=== PATIENT | female | born 1965 | race Hispanic/Latino ===

== ENCOUNTER 2020-01-22 22:06 | Emergency (ER) | payer BC, OTHER, SELFPAY ==
--- OUTSIDE RECORDS SUMMARY | 2020-01-22 22:08 | XMS REPORT ---
:1965 Author Organization eClinicalWorks Care Team Providers Name Role Phone Bharath Olguin Provider Role Unavailable Allergies No Known Allergies Problems Problem Type Condition Code Onset Dates Condition Statu s Problem Panic disorder [episodic paroxysmal F41.0 Active anxiety] Problem Familial hypercholesteremia E78.01 Active Problem Generalized anxiety disorder F41.1 Active Problem Benign essential hypertension I10 Active Problem Depression with anxiety F41.8 Acti ve Problem Elevated LFTs R79.89 Active Problem Mixed hyperlipidemia E78.2 Active Medications No Known Medications Results No Known Results Summary Purpose eClinicalWorks Submission
--- OUTSIDE RECORDS SUMMARY | 2020-01-22 22:08 | XMS REPORT ---
:1965 Author Organization eClinicalWorks Care Team Providers Name Role Phone Sharif Bharath Provider Role Unavailable Allergies No Known Allergies Problems Problem Type Condition Code Onset Dates Condition Statu s Assessment Benign essential hypertension I10 Active Problem Panic disorder [episodic paroxysmal F41.0 Active anxiety] Problem Familial hypercholesteremia E78.01 Active Problem Generalized anxiety disorder F41.1 Active Problem Benign essential hypertension I10 Active Problem Depression with anxiety F41.8 Acti ve Problem Elevated LFTs R79.89 Active Problem Mixed hyperlipidemia E78.2 Active Medications Medication Code Code Instructions Start End Status Dosage System Date Date Hydrochlorothiazide [facility] 23875727258 12.5 MG Orally Jan 05, A ctive 1 tablet Once a day 2019 in the morning Zestoretic [facility] 10372599724 10-12.5 MG Inactive 1 tab let Orally Once a day Lisinopril [facility] 54941374906 10 MG Orally Jan 05, Active 1 ta blet Once a day 2019 Results No Known Results Summary Purpose eClinicalWorks Submission
--- OUTSIDE RECORDS SUMMARY | 2020-01-22 22:08 | XMS REPORT ---
:1965 Author Organization eClinicalWorks Care Team Providers Name Role Phone Sharif Bharath Provider Role Unavailable Allergies, Adverse Reactions, Alerts Substance Reaction Event Type N.K.D.A. Info Not Available Non Drug Allergy Problems Problem Type Condition Code Onset Dates Condition Statu s Assessment Generalized anxiety disorder F41.1 Active Assessment Panic disorder [episodic paroxysmal F41.0 Active anxiety] Problem Panic disorder [episodic paroxysmal F41.0 Active anxiety] Problem Familial hypercholesteremia E78.01 Active Problem Generalized anxiety disorder F41.1 Active Problem Benign essential hypertension I10 Active Problem Depression with anxiety F41.8 Acti ve Problem Elevated LFTs R79.89 Active Problem Mixed hyperlipidemia E78.2 Active Assessment Elevated uric acid in blood E79.0 Active Assessment Renal insufficiency N28.9 Active Assessment Prediabetes R73.03 Active Assessment Statin intolerance Z78.9 Active Assessment Mixed hyperlipidemia E78.2 Active Assessment Adult BMI 27.0-27.9 kg/sq m Z68.27 Active Assessment Elevated LFTs R79.89 Active Assessment Benign essential hypertension I10 Active Assessment Familial hypercholesteremia E78.01 Active Assessment Depression with anxiety F41.8 Acti ve Medications Medication Code System Code Instructions Start End Date Status Dos age Date Lexapro ND 05313986806 20 MG Orally Once Active Ta ke 1 a day tablet Zestoretic [facility] 98689861101 10-12.5 MG Orally Active 1 tablet Once a day Alprazolam ND 24794588892 0.5 MG Orally Dec 30, Active 1 t ablet ONCE A DAY PRN 2019 SEVERE PANIC ATTACK Lexapro ND 33287812422 20 MG Active TAKE ONE (1) TABLET(S) BY MOUTH ONCE A DAY. Crestor ND 00922580898 10 MG Orally Once Active 1 tablet a day Results No Known Results Summary Purpose eClinicalWorks Submission
--- OUTSIDE RECORDS SUMMARY | 2020-01-22 22:08 | XMS REPORT ---
:1965 Author Organization eClinicalWorks Care Team Providers Name Role Phone Bharath Olguin Provider Role Unavailable Allergies No Known Allergies Problems Problem Type Condition Code Onset Dates Condition Statu s Problem Elevated LFTs R79.89 Active Problem Mixed hyperlipidemia E78.2 Active Problem Familial hypercholesteremia E78.01 Active Problem Benign essential hypertension I10 Active Problem Depression with anxiety F41.8 Acti ve Medications No Known Medications Results No Known Results Summary Purpose eClinicalWorks Submission
--- OUTSIDE RECORDS SUMMARY | 2020-01-22 22:08 | XMS REPORT ---
[...] Mixed hyperlipidemia E78.2 Active Medications Medication Code System Code Instructions Start Date End Date Status Dosage Zestoretic [facility] 22531354113 10-12.5 MG Orally Active 1 tablet Once a day Results No Known Results Summary Purpose eClinicalWorks Submission
--- OUTSIDE RECORDS SUMMARY | 2020-01-22 22:08 | XMS REPORT ---
:1965 Author Organization eClinicalWorks Care Team Providers Name Role Phone OlguinBharath Provider Role Unavailable Allergies No Known Allergies Problems Problem Type Condition Code Onset Dates Condition Statu s Assessment Panic disorder [episodic paroxysmal F41.0 Active anxiety] Problem Panic disorder [episodic paroxysmal F41.0 Active anxiety] Problem Familial hypercholesteremia E78.01 Active Problem Generalized anxiety disorder F41.1 Active Problem Benign essential hypertension I10 Active Problem Depression with anxiety F41.8 Acti ve Problem Elevated LFTs R79.89 Active Problem Mixed hyperlipidemia E78.2 Active Medications Medication Code System Code Instructions Start Date End Date Status Dosage Alprazolam [facility] 22842264495 1 MG Orally ONCE Active 1 tablet A DAY PRN SEVERE PANIC ATTACK Results No Known Results Summary Purpose eClinicalWorks Submission
--- OUTSIDE RECORDS SUMMARY | 2020-01-22 22:08 | XMS REPORT | Continuity of Care Document ---
:1965 Author Organization [facility] t Address [address] [place] [address] Care Team Providers Name Role Phone Unavailable Unavailable Unavailable Problems Condition Condition Condition Status Onset Resolution Last Treating Co mments Source Name Details Category Date Date Treatment Clinician Date Elevated Elevated Problem [facility] Mixed Mixed Problem Active [facility] hyperlipid hyperlipid Sheryl kes - emia emia [facility] Benign Benign Problem Active [facility] essential essential [facility] - hypertensi hypertensi Me moria on on l [facility] Depression Depression Problem Active [facility] with with [facility] anxiety [facility] Familial Familial Problem Active [facility] hyperchole hyperchole Sheryl kes - steremia steremia Mem[facility] Generalize Generalize Problem Active [facility] d anxiety d anxiety [facility] - disorder disorder [facility] Panic Panic Problem Active [facility] disorder disorder [facility] [episodic [episodic Bill bailee paroxysmal paroxysmal l anxiety] anxiety] Outpat i ent Clinics Allergies, Adverse Reactions, Alerts This patient has no known allergies or adverse reactions. Medications Ordered Filled Start Stop Current Ordering Indication Dosage Frequency Signature Comments Components Source Medication Medication Date Date Medication? Clinician (SIG) Name Name Alprazolam Alprazolam Yes Bharath [address] [facility]guin [facility] Procedures This patient has no known procedures. Encounters Start End Encounter Admission Attending Care Care Encounter Source Date/Time Date/Time Type Type Clinicians Facility Department ID 2020-01-11 2020-01-11 [facility] [id number] [facility] 13:12[facility] 13:12:00 [place] [facility] Family [facility] Family Medicine Medicine Outpati ent Clinics 2020-01-06 2020-01-06 [facility] [id number] [facility] 08:00:00 08:00:00 [place] [facility] Medicine Medicine Outpati ent Clinics 2020-01-05 2020-01-05 [facility] [id number] 10:40:00 10:40:00 t [facility] l Medicine Outpati ent Clinics 2019-12-31 2019-12-31 [facility] [id number] [facility] 16:30:00 16:30:00 [place] [employer] [facility] l Medicine Outpati ent Clinics 2019-12-31 2019-12-31 [facility] [id number] 15:52:00 15:52:00 t [place] [facility] l Medicine Outpati ent Clinics 2019-11-02 2019-11-02 [facility] [id number] 09:11:00 09:11:00 [place] [employer] [facility] Medicine Outpati ent Clinics 2019-10-30 2019-10-30 [facility] [id number] [facility] 13:30:00 13:30:00 t [facility] Medicine Outpati ent Clinics 2019-10-07 2019-10-07 [facility] [id number] [facility] 16:30:00 16:30:00 [place] [employer] [facility] Medicine Outpati ent Clinics 2019-07-29 2019-07-29 [facility] [id number] 11[facility]15:00 11:15:00 [place] [employer] [facility] Medicine Medicine Outpati ent Clinics 2019-06-30 2019-06-30 [facility] [id number] [facility] 13:15:00 13:15:00 [place] [employer] [facility] l Medicine Outpati ent Clinics 2019-06-16 2019-06-16 [facility] [id number] [facility] 14:52:00 14:52:00 t [place] [facility] Medicine Outpati ent Clinics 2019-06-03 2019-06-03 [facility] [id number] 10:53:00 10:53:[place] [address] [address] [place] [facility] l Medicine Outpati ent Clinics 2019-04-22 2019-04-22 [facility] [id number] 14:09:00 14:09:[address] [place] [address] [address] [place] - Drive [facility] Medicine Outpati ent Clinics 2019-04-02 2019-04-02 [facility] [id number] 11:07:00 11:07:[facility] [place] [address] [place] - Drive [facility] Medicine Outpati ent Clinics 2019-03-30 2019-03-30 [facility] [id number] 11:54:00 11:54:00 [place] - Drive [facility] Medicine Outpati ent Clinics 2019-02-10 2019-02-10 [facility] [id number] 13:45:00 13:45:00 [place] - [facility] Medicine Outpati ent Clinics 2018-10-31 2018-10-31 [facility] [id number] [facility] 09:15:00 09:15:00 [place] - Drive [facility] Medicine Outpati ent Clinics 2018-08-25 2018-08-25 [facility] [id number] 15:25:00 15:25:00 [place] - [facility] Medicine Outpati ent Clinics 2018-07-04 2018-07-04 [facility] [id number] [facility] 09:45:00 09:45:00 [place] - [facility] Medicine Outpati ent Clinics 2018-06-11 2018-06-11 [facility] [id number] 11:13:00 11:13:00 [place] - [facility] Medicine Outpati ent Clinics 2018-02-13 2018-02-13 [facility] [id number] [facility] 15:48:00 15:48:00 t [place] [facility] 2017-10-29 2017-10-29 Outpatient Tj [facility] [id number] [facility] 09:30:00 09:30:00 t [place] [facility] 2017-07-29 2017-07-29 Outpatient Tj Spenc[facility] [id number] [facility] 09:30:00 09:30:00 [place] [facility] ent Clinics Results This patient has no known results.
[2020-01-22 22:31] LABS: Absolute Lymphocytes (CBC) 2.1 K/uL (0.7-4.9); Basophils % 0.9 % (0-1.3); Hematocrit 30.7 % (36.0-45.0); Lymphocytes % 26.8 % (15.3-44.8); MPV 8.1 fL (7.6-11.3)
[2020-01-22] MEDS ORDERED: ONDANSETRON 4 MG/2 ML VIAL ONE (22:41)
[2020-01-22] MEDS ORDERED: NA CHLORIDE 0.9% 1,000 ML ONE (22:41)
[2020-01-22 22:42] LABS: Protime INR 1.08
[2020-01-22] MEDS ORDERED: ACT CHARCOAL/SORB 50 GM/240ML ONE (22:54)
[2020-01-22 23:06] LABS: ALT/SGPT 28 U/L (12-78); AST/SGOT 27 U/L (15-37); Alkaline Phosphatase 72 U/L (45-117); BUN Blood Urea Nitrogen 31 mg/dL (7-18); Bicarbonate 23 mmol/L (21-32); Bilirubin Direct < 0.1 mg/dL (0-0.2); Bilirubin Total 0.2 mg/dL (0.2-1.0); Glucose Level 103 mg/dL (74-106); Potassium 3.5 mmol/L (3.5-5.1); Protein, Total 7.9 g/dL (6.4-8.2); Sodium Level 138 mmol/L (136-145)
[2020-01-22 23:17] LABS: Urine Blood NEGATIVE (NEG); Urine Glucose NEGATIVE (NEG); Urine Protein NEGATIVE (NEG); Urine pH 5.5 (5.0-7.0)
[2020-01-22 23:31] LABS: Barbiturates NEGATIVE (NEGATIVE); Benzodiazepines NEGATIVE (NEGATIVE); Cocaine NEGATIVE (NEGATIVE); METHAMPHETAM POSITIVE (NEGATIVE); Methadone NEGATIVE (NEGATIVE); Opiates NEGATIVE (NEGATIVE); Phencyclidine NEGATIVE (NEGATIVE); THC Cannibis NEGATIVE (NEGATIVE)
[2020-01-23] MEDS ORDERED: MAGNESIUM SULFATE 1 gm IVPB 1 GM/100 ML BAG IV ONE ×2 (05:05→06:36)
[2020-01-23] MEDS ORDERED: POTASSIUM 25 MEQ EFFERV TAB ONE (06:36)
[2020-01-23] MEDS ORDERED: ACETAMINOPHEN 325 MG TABLET ONE (07:42)
--- NOTE | 2020-01-23 08:24 | ER ---
Nurse's Notes [facility] Name: Cristy Diaz Age: 54 yrs Sex: Female : 1965 Arrival Date: 01/22/2020 Time: 22:07 Bed 5 Private MD: Diagnosis: Suicidal ideations-resolved;Suicide attempt;Adjustment disorder with depressed mood Presentation: 01/21 22:09 Chief complaint: EMS states: Daughter called EMS, reports mother took an unknown amount ea of pills. Daughter handed EMS Hydrochlorothiazide 12.5 mg , escitalopram 20 mg and rosuvastatin 10 mg bottles. Pt reports she took meds about thirty minutes ago. Coronavirus screen: At this time, the client does not indicate any symptoms associated with coronavirus-19. Ebola Screen: No symptoms or risks identified at this time. Initial Sepsis Screen: Does the patient meet any 2 criteria? No. Patient's initial sepsis screen is negative. Does the patient have a suspected source of infection? No. Patient's initial sepsis screen is negative. Risk Assessment: Do you want to hurt yourself or someone else? Patient reports desire/thoughts of hurting themselves or someone else. Provider notified. Other: pt verbalized she took pills because she wanted to commit suicide. Onset of symptoms was January 22, 2020. 22:09 Method Of Arrival: EMS: [facility] ea 22:09 Acuity: NOELLE 2 ea Triage Assessment: 22:19 General: Appears uncomfortable, Behavior is crying. Pain: Denies pain. Neuro: Level of ea Consciousness is awake, alert, obeys commands, Oriented to person, place, time, situation. Respiratory: Airway is patent Respiratory effort is even, unlabored, Respiratory pattern is regular, symmetrical. Historical: - Allergies: 22:18 No Known Allergies; ea - PSHx: 22:18 None; ea - Immunization history:: Adult Immunizations up to date. - Social history:: Smoking status: Patient denies any tobacco usage or history of. Screenin:14 Abuse screen: Denies threats or abuse. Nutritional screening: No deficits noted. ea Tuberculosis screening: No symptoms or risk factors identified. Fall Risk None identified. Assessment: 22:19 Reassessment: see triage assessment. ea 22:30 Reassessment: POISON CONTROL RECOMMENDATION: HCTZ AND ROSUVASTATIN HAVE MINOR EFFECTS, rv WATCH OUT FOR GI SYMPTOMS LIKE DIARRHEA, TREATMENT FOR ELECTROLYTE IMBALANCE. 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 CHANGES IN THE EKG, QRS WIDENING- GIVE SODIUM BICARBONATE, MAINTAIN POTASSIUM LEVEL OF 4.0-4.2, QT PROLONGATION- GIVE MAGNESIUM 1-2 GRAMS IV FOR 15 MINUTES. IF INGESTION HAPPENED LESS THAN AN HOUR, WE CAN DO CHARCOAL TREATMENT. AFTER SIX HOUR DEYA AFTER INGESTION OF SUBSTANCE, IF LAB WORKS ARE ALL NEGATIVE, PATIENT CAN BE MEDICALLY CLEARED FOR DISCHARGED. Reassessment: . 23:35 Reassessment: Patient and/or family updated on plan of care and expected duration. Pain ea level reassessed. Patient is alert, oriented x 3, equal unlabored respirations, skin warm/dry/pink. 23:49 Neuro: Level of Consciousness is alert, obeys commands, Oriented to person, place, rv time, situation. Cardiovascular: Rhythm is sinus tachycardia. Respiratory: Airway is patent Respiratory effort is even, unlabored. 01/22 01:01 General: Behavior is cooperative. Pain: Denies pain. Neuro: Oriented to person, place, rv time, situation. Cardiovascular: Rhythm is sinus tachycardia. Respiratory: Airway is patent Respiratory effort is even, unlabored, Breath sounds are clear bilaterally. 02:24 Reassessment: Pt resting with eyes closed, respirations even and unlabored, chest ea expansions even and symmetrical. 03:30 Reassessment: Patient and/or family updated on plan of care and expected duration. Pain ea level reassessed. Patient is alert, oriented x 3, equal unlabored respirations, skin warm/dry/pink. 04:58 Reassessment: Patient and/or family updated on plan of care and expected duration. Pain ea level reassessed. Patient is alert, oriented x 3, equal unlabored respirations, skin warm/dry/pink. 05:30 Reassessment: Pt resting with eyes closed, respirations even and unlabored chest ea expansions even and symmetrical. 06:15 Reassessment: Patient and/or family updated on plan of care and expected duration. Pain ea level reassessed. Patient is alert, oriented x 3, equal unlabored respirations, skin warm/dry/pink. 07:34 Reassessment: pt c/o headache at this time, medicated as ordered. tw2 08:15 Reassessment: Patient appears in no apparent distress at this time. Patient and/or tw2 family updated on plan of care and expected duration. Pain level reassessed. Patient is alert, oriented x 3, equal unlabored respirations, skin warm/dry/pink. 08:38 Reassessment: Patient appears in no apparent distress at this time. Patient and/or tw2 family updated on plan of care and expected duration. Pain level reassessed. Patient is alert, oriented x 3, equal unlabored respirations, skin warm/dry/pink. 08:45 Reassessment: Patient appears in no apparent distress at this time. Patient and/or tw2 family updated on plan of care and expected duration. Pain level reassessed. Patient is alert, oriented x 3, equal unlabored respirations, skin warm/dry/pink. Psych: 01/21 22:15 Subjective: Patient's mood is sad, Delusions are denied, Having thoughts of suicide. ea Plan for suicide is Pt states "I took them because I wanted to ". Objective: Patient is cooperative, Speech is normal, Affect is appropriate. Interventions: Removed personal items and placed in bag. Patient placed in hospital gown. Searched person for dangerous items. Suicide Risk Assessment: Sad Person Scale: Sex of patient: Female: Score 0 points. Age of patient: Score 0 point if patient falls outside of specified age parameters. Depression: Score 1 point if signs of depression are present. Previous Attempt: Score 0 point if patient has not previously attempted suicide. Substance Abuse: Score 1 point if patient abuses alcohol or drugs. Rational Thinking: Score 0 point if patient has rational thinking. Social Support: Score 0 if social support is present/available. Organized Plan: Score 1 point if patient had a plan in place. Relationship: Score 1 point if patient is , , , or for a single male. Safety Checks: Personal items have been removed. Door is open. No visitors are present at this time. Patient uses pt reports she drank three boxes of wine today. 22:15 Commitment: Patient will be a voluntary commitment. ea Vital Signs: 22:09 BP 164 / 101; Pulse 105; Resp 20; Temp 97.4; Pulse Ox 99% on R/A; Weight 70.31 kg; ea Height 5 ft. 11 in. (180.34 cm); 23:18 BP 157 / 102; Pulse 102; Resp 18; Pulse Ox 98% ; ea 01/22 00:58 BP 112 / 52; Pulse 106; Resp 17; Pulse Ox 91% on R/A; rv 01:01 Pulse Ox 98% on 2 lpm NC; rv 02:25 BP 104 / 56; Pulse 99; Resp 18; Pulse Ox 98% on R/A; ea 03:52 BP 94 / 57; Pulse 96; Resp 18; Pulse Ox 98% on R/A; ea 04:00 BP 106 / 64; Pulse 88; Resp 18; Pulse Ox 98% ; ea 05:11 BP 127 / 70; Pulse 90; Resp 17; Pulse Ox 99% on 2 lpm NC; rv 06:16 BP 122 / 78; Pulse 95; Resp 18; Pulse Ox 99% on R/A; ea 07:43 BP 115 / 72; Pulse 93; Resp 16; Temp 97.8(O); Pulse Ox 100% on R/A; mh5 08:15 BP 131 / 87; Pulse 94; Resp 17; Pulse Ox 99% on R/A; tw2 01/21 22:09 Body Mass Index 21.62 (70.31 kg, 180.34 cm) ED Course: 01/21 22:07 Patient arrived in ED. cf2 22:09 Bridget Deshpande, RN is Primary Nurse. ea 22:13 Triage completed. ea 22:14 Patient has correct armband on for positive identification. Placed in gown. Bed in low ea position. Call light in reach. Side rails up X2. property assessment monitor on. Pulse ox on. NIBP on. 22:15 Vega Cleaning MD is Attending Physician. lp1 22:15 Safety Checks: Personal items have been removed. There are no family/friend visitors at this time Sitter present at this time. 22:19 Arm band placed on right wrist. Patient placed in an exam room, on a stretcher, on pulse oximetry. 22:21 EKG done, by ED staff. tt3 22:30 Safety Checks: Personal items have been removed. There are no family/friend visitors at this time Sitter present at this time. 22:45 Safety Checks: Personal items have been removed. There are no family/friend visitors at this time Sitter present at this time. 23:00 Safety Checks: Personal items have been removed. There are no family/friend visitors at this time Sitter present at this time. 23:15 Safety Checks: Personal items have been removed. There are no family/friend visitors at this time Sitter present at this time. 23:30 Safety Checks: Personal items have been removed. There are no family/friend visitors at this time Sitter present at this time. 23:49 Appears to be sleeping. rv 23:49 Patient is placed in psych hold. rv 01/22 01:01 Appears to be sleeping. rv 06:23 Attending Physician role handed off by Vega Cleaning MD ma2 06:23 Michael Nelson MD is Attending Physician. ma2 06:24 Attending Physician role handed off by Michael Nelson MD irasema 06:24 Noe Addison MD is Attending Physician. irasema 07:00 Maintain EMS IV. IV discontinued, intact, bleeding controlled, No redness/swelling at tw2 site. Pressure dressing applied. 07:10 Primary Nurse role handed off by Bridget Deshpande RN tw2 07:10 Chantale Goldberg RN is Primary Nurse. tw2 08:22 Denver Valencia MD is Referral Physician. irasema 08:38 No provider procedures requiring assistance completed. tw2 Administered Medications: 01/21 22:20 Drug: NS 0.9% 1000 ml Route: IV; Rate: 1 bolus; Site: right hand; ea 23:32 Follow up: IV Status: Completed infusion; IV Intake: 1000ml rv 22:30 Drug: Zofran (Ondansetron) 4 mg Route: IVP; Site: right hand; ea 23:32 Follow up: Response: No adverse reaction rv 22:55 Drug: Charcoal Suspension 100 grams Route: PO; ea 01/22 01:06 Follow up: Response: No adverse reaction rv 05:00 Drug: Magnesium Sulfate 1 grams Route: IVPB; Infused Over: 1 hrs; Site: right wrist; rv 05:30 Follow up: IV Status: Completed infusion; IV Intake: 100ml rv 06:29 Drug: Potassium Effervescent Tablet 50 mEq Route: PO; rv 06:58 Follow up: Response: No adverse reaction rv 06:29 Drug: Magnesium Sulfate 1 grams Route: IVPB; Infused Over: 1 hrs; Site: right wrist; rv 06:58 Follow up: IV Status: Completed infusion; IV Intake: 100ml rv 07:34 Drug: Tylenol 650 mg Route: PO; tw2 08:15 Follow up: Response: No adverse reaction tw2 Intake: 01/21 23:32 IV: 1000ml; Total: 1000ml. rv 0912 05:30 IV: 100ml; Total: 1100ml. rv 06:58 IV: 100ml; Total: 1200ml. rv Outcome: 08:23 Discharge ordered by . irasema 08:38 Discharged to home ambulatory. 08:38 Condition: stable 08:38 Discharge instructions given to patient, Instructed on discharge instructions, follow up and referral plans. Demonstrated understanding of instructions, follow-up care. 08:45 Patient left the ED. tw2 Signatures: Noe Addison MD MD cha Pena, Laura RN RN lp1 Chantale Goldberg RN RN 2 [place] Pena [facility] Bridget Deshpande RN RN ea Alzahri, Mohammad, MD MD ma2 Stephen Bella RN RN Elzbieta Wyatt 2 Scott Walker 3
--- NOTE | 2020-01-23 08:24 | EDPHYS ---
Physician Documentation [facility] Name: Cristy Diaz Age: 54 yrs Sex: Female : 1965 Arrival Date: 01/22/2020 Time: 22:07 Bed 5 Private MD: ED Physician Noe Addison HPI: 01/22 03:48 This 54 yrs old Female presents to ER via EMS with complaints of Suicidal tw4 Ideation. 03:48 The patient presents to the emergency department with depression, over a relationship, tw4 has had a recent break-up, a history of a suicide gesture, where the patient took pills/medications, suicide ideation, and the patient has a plan, to overdose with medications. The patient presents to the emergency department with a history of a suicide gesture, where the patient took pills/medications, citaprolam. Onset: The symptoms/episode began/occurred just prior to arrival. Associated signs and symptoms: The patient has no apparent associated signs or symptoms. The patient has not experienced similar symptoms in the past. Historical: - Allergies: 01/21 22:18 No Known Allergies; ea - PSHx: 22:18 None; ea - Immunization history:: Adult Immunizations up to date. - Social history:: Smoking status: Patient denies any tobacco usage or history of. ROS: 01/22 03:48 Constitutional: Negative for fever, chills, and weight loss, Eyes: Negative for injury, tw4 pain, redness, and discharge, Cardiovascular: Negative for chest pain, palpitations, and edema, Respiratory: Negative for shortness of breath, cough, wheezing, and pleuritic chest pain, Abdomen/GI: Negative for abdominal pain, nausea, vomiting, diarrhea, and constipation, Back: Negative for injury and pain, MS/Extremity: Negative for injury and deformity, Skin: Negative for injury, rash, and discoloration. Psych: Positive for depression, suicide gesture, suicidal ideation, Negative for drug dependence, alcohol dependence, auditory hallucinations, visual hallucinations, homicidal ideation. Exam: 03:48 Constitutional: This is a well developed, well nourished patient who is awake, alert, tw4 and in no acute distress. Head/Face: Normocephalic, atraumatic. Chest/axilla: Normal chest wall appearance and motion. Nontender with no deformity. No lesions are appreciated. Cardiovascular: Regular rate and rhythm with a normal S1 and S2. No gallops, murmurs, or rubs. Normal PMI, no JVD. No pulse deficits. Respiratory: Lungs have equal breath sounds bilaterally, clear to auscultation and percussion. No rales, rhonchi or wheezes noted. No increased work of breathing, no retractions or nasal flaring. Abdomen/GI: Soft, non-tender, with normal bowel sounds. No distension or tympany. No guarding or rebound. No evidence of tenderness throughout. Back: No spinal tenderness. No costovertebral tenderness. Full range of motion. MS/ Extremity: Pulses equal, no cyanosis. Neurovascular intact. Full, normal range of motion. Neuro: Awake and alert, GCS 15, oriented to person, place, time, and situation. Cranial nerves II-XII grossly intact. Motor strength 5/5 in all extremities. Sensory grossly intact. Cerebellar exam normal. Normal gait. 03:48 Psych: Behavior/mood is anxious, depressed, Affect is animated, Oriented to person, place, time, Patient having thoughts of suicide. Plan for suicide is took pills Judgement / Insight is impaired. Vital Signs: 01/21 22:09 BP 164 / 101; Pulse 105; Resp 20; Temp 97.4; Pulse Ox 99% on R/A; Weight 70.31 kg; ea Height 5 ft. 11 in. (180.34 cm); 23:18 BP 157 / 102; Pulse 102; Resp 18; Pulse Ox 98% ; ea 01/22 00:58 BP 112 / 52; Pulse 106; Resp 17; Pulse Ox 91% on R/A; rv 01:01 Pulse Ox 98% on 2 lpm NC; rv 02:25 BP 104 / 56; Pulse 99; Resp 18; Pulse Ox 98% on R/A; ea 03:52 BP 94 / 57; Pulse 96; Resp 18; Pulse Ox 98% on R/A; ea 04:00 BP 106 / 64; Pulse 88; Resp 18; Pulse Ox 98% ; ea 05:11 BP 127 / 70; Pulse 90; Resp 17; Pulse Ox 99% on 2 lpm NC; rv 06:16 BP 122 / 78; Pulse 95; Resp 18; Pulse Ox 99% on R/A; ea 07:43 BP 115 / 72; Pulse 93; Resp 16; Temp 97.8(O); Pulse Ox 100% on R/A; mh5 08:15 BP 131 / 87; Pulse 94; Resp 17; Pulse Ox 99% on R/A; tw2 01/21 22:09 Body Mass Index 21.62 (70.31 kg, 180.34 cm) MDM: 01/21 22:20 Patient medically screened. 4 01/22 03:50 Differential diagnosis: drug withdrawal. depression. Data reviewed: vital signs, nurses 4 notes. Data interpreted: Pulse oximetry: Interpretation: normal. Counseling: I had a detailed discussion with the patient and/or guardian regarding: the historical points, exam findings, and any diagnostic results supporting the discharge/admit diagnosis, lab results. Awaiting: Psychiatric clinic office assistant. 08:18 Test interpretation: by ED physician or midlevel provider: ECG. ED course: follow up as irasema out patient, not suicidal, not homicidal. 01/21 22:13 Order name: Acetaminophen; Complete Time: 23:37 01/21 23:38 Interpretation: Within normal limits: ACETA < 2.0. [facility] 01/21 22:13 Order name: Basic Metabolic Panel; Complete Time: 23:37 01/21 23:37 Interpretation: Normal except: BUN 31; CRE 1.52; GFR 35. [facility] 01/21 22:13 Order name: CBC with Diff; Complete Time: 23:37 01/21 23:38 Interpretation: Normal except: RBC 3.10; HGB 10.6; HCT 30.7. [facility] 01/21 22:13 Order name: ETOH Level; Complete Time: 23:37 01/21 23:38 Interpretation: Abnormal: ETOH 269. [facility] 01/21 22:13 Order name: Hepatic Function; Complete Time: 23:37 01/21 23:38 Interpretation: Normal except: GLOB 3.9; A/G 1.0. [facility] 01/21 22:13 Order name: PT-INR; Complete Time: 23:37 01/21 23:38 Interpretation: Abnormal: PT 12.7. 01/21 22:13 Order name: Ptt, Activated; Complete Time: 23:37 01/21 22:13 Order name: Salicylate; Complete Time: 23:37 01/21 23:38 Interpretation: Within normal limits: BUNNY < 1.7. [facility] 01/21 22:13 Order name: Urine Drug Screen; Complete Time: 23:37 ea 01/21 23:39 Interpretation: Normal except: METHAMPHETAMINE POSITIVE. tw4 01/21 22:30 Order name: CK; Complete Time: 23:37 rv 01/21 23:16 Order name: Urine Dipstick--Ancillary (enter results); Complete Time: 23:37 ar5 01/22 04:15 Order name: Magnesium; Complete Time: 04:52 rv 01/21 22:13 Order name: EKG; Complete Time: 22:13 ea 01/21 22:13 Order name: EKG - Nurse/Tech; Complete Time: 22:43 ea 01/21 22:13 Order name: IV Saline Lock; Complete Time: 22:43 ea 01/21 22:13 Order name: Labs collected and sent; Complete Time: 22:43 ea 01/21 22:13 Order name: Urine Dipstick-Ancillary (obtain specimen); Complete Time: 23:32 ea 01/22 08:14 Order name: EKG; Complete Time: 08:15 tw2 01/22 08:14 Order name: EKG - Nurse/Tech; Complete Time: 08:15 tw2 EC:48 Rate is 111 beats/min. Rhythm is regular, Sinus tachycardia. QRS [place] is Normal. [place] tw4 interval is normal. QRS interval is normal. QT interval is normal. No Q waves. T waves are Normal. No ST changes noted. Clinical impression: NSR w/ Non-specific ST/T Changes. Interpreted by me. Reviewed by me. Administered Medications: 01/21 22:20 Drug: NS 0.9% 1000 ml Route: IV; Rate: 1 bolus; Site: right hand; ea 23:32 Follow up: IV Status: Completed infusion; IV Intake: 1000ml rv 22:30 Drug: Zofran (Ondansetron) 4 mg Route: IVP; Site: right hand; ea 23:32 Follow up: Response: No adverse reaction rv 22:55 Drug: Charcoal Suspension 100 grams Route: PO; ea 01/22 01:06 Follow up: Response: No adverse reaction rv 05:00 Drug: Magnesium Sulfate 1 grams Route: IVPB; Infused Over: 1 hrs; Site: right wrist; rv 05:30 Follow up: IV Status: Completed infusion; IV Intake: 100ml rv 06:29 Drug: Potassium Effervescent Tablet 50 mEq Route: PO; rv 06:58 Follow up: Response: No adverse reaction rv 06:29 Drug: Magnesium Sulfate 1 grams Route: IVPB; Infused Over: 1 hrs; Site: right wrist; rv 06:58 Follow up: IV Status: Completed infusion; IV Intake: 100ml rv 07:34 Drug: Tylenol 650 mg Route: PO; tw2 08:15 Follow up: Response: No adverse reaction tw2 Disposition: 01/23/20 08:23 Discharged to Home. Impression: Suicidal ideations - resolved, Suicide attempt, Adjustment disorder with depressed mood. - Condition is Stable. - Discharge Instructions: Adjustment Disorder, Adult, Suicidal Feelings: How to Help Yourself, Helping Someone Who is Suicidal. - Medication Reconciliation Form, Thank You Letter, Antibiotic Education, Prescription Opioid Use form. - Follow up: Private Physician; When: 2 - 3 days; Reason: Recheck today's complaints, Continuance of care, Re-evaluation by your physician. Follow up: Denver Valencia MD; When: 2 - 3 days; Reason: Recheck today's complaints, Re-evaluation by your physician. - Problem is new. - Symptoms have improved. Critical care time excluding procedures: 08:18 Critical care time: Bedside Care: 20 minutes, Family Intervention: 5 minutes. Total irasema time: 25 minutes Signatures: Dispatcher [employer] Noe Sutton MD MD cha Pena, Laura RN RN lp1 Chantale Goldberg RN RN tw2 Bridget Deshpande RN RN ea Wadley, Terrence, MD MD tw4 Stephen Bella RN RN rv Corrections: (The following items were deleted from the chart) 08:45 08:23 01/23/2020 08:23 Discharged to Home. Impression: Suicidal ideations - resolved; tw2 Suicide attempt; Adjustment disorder with depressed mood. Condition is Stable. Forms are Medication Reconciliation Form, Thank You Letter, Antibiotic Education, Prescription Opioid Use. Follow up: Private Physician; When: 2 - 3 days; Reason: Recheck today's complaints, Continuance of care, Re-evaluation by your physician. Follow up: Denver Valencia; When: 2 - 3 days; Reason: Recheck today's complaints, Re-evaluation by your physician. Problem is new. Symptoms have improved. irasema
[2020-01-23 09:01] VITALS: TEMP 97.8
[2020-01-23 09:02] VITALS: BP 131/87; O2SAT 99
--- NOTE | 2020-01-24 09:47 | EKG ---
Test Date: 2020-01-22 Test Time: 22:15:10 Board Member: TLT MEASUREMENT RESULTS: Intervals: Rate: 111 [place]: 124 QRSD: 76 QT: 338 QTc: 459 [place]: P: 47 KS: 124 QRS: 18 T: 24 INTERPRETIVE STATEMENTS: Sinus tachycardia with fusion complexes Cannot rule out Anterior infarct, age undetermined Abnormal ECG No previous ECG available for comparison Electronically Signed On 01-24-20 09:44:34 CDT by Jacob Flynn
--- NOTE | 2020-01-24 09:47 | EKG ---
Test Date: 2020-01-22 Test Time: 22:15:37 Primary Class Teacher: TLT MEASUREMENT RESULTS: Intervals: Rate: 111 [place]: 144 QRSD: 72 QT: 344 QTc: 467 [place]: P: 54 [place]: 144 QRS: 40 T: 48 INTERPRETIVE STATEMENTS: Sinus tachycardia with occasional premature ventricular complexes and fusion complexes Right atrial enlargement Anterior infarct, age undetermined Abnormal ECG Compared to ECG 01/22/2020 22:15:10 Ventricular premature complex(es) now present Atrial abnormality now present Myocardial infarct finding still present Electronically Signed On 01-24-20 09:44:33 CDT by Jacob Flynn
== END 2020-01-23 08:45 | disposition home or self-care (01) ==
LOC: ER 22:06
DX: F43.21 Adjustment disorder with depressed mood (principal)
CPT/HCPCS: 36415; 80048; 80076; 80307; 80320; 80329; 81003; 82550; 83735; 85025; 85610; 85730; 93005; 96361; 96365; 96375; 99285; J2405; J3475; J7030

== ENCOUNTER 2022-06-04 12:48 | Inpatient (IN) | payer SELFPAY ==
--- OUTSIDE RECORDS SUMMARY | 2022-06-04 13:33 | XMS REPORT | Continuity of Care Document ---
:1965 Author Organization [facility] t Address [address] [place] [address] Care Team Providers Name Role Phone Bharath Olguin Attending Clinician Unavailable Problems Condition Condition Condition Status Onset Resolution Last Treating Co mments Source Name Details Category Date Date Treatment Clinician Date Mixed Depression Problem Commo n anxiety with Spirit and anxiety - [facility] depressive 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 Social History Social Habit Start Date Stop Date Quantity Comments Source History of Tobacco Use Co mmon [facility] Sex Assigned At Com mon [facility] Smoking Status Start Date Stop Date Source Never Smoker Common [facility] Medications Ordered Filled Start Stop Current Ordering Indication Dosage Frequency Signature Comments Components Source Medication Medication Date Date Medication? Clinician (SIG) Name Name Phentermine Phentermine No 1{table QD Phentermin HCl 37.5 MG HCl 37.5 MG 7-18 t} e HCl 37.5 00:00: MG 00 Phentermine Phentermine 2-0 No 1{table QD Phentermin HCl 37.5 MG HCl 37.5 MG 7-18 t} e HCl 37.5 00:00: MG 00 Alprazolam Alprazolam Yes Bharath 1 tablet Common [facility]gu[facility] - [facility] Lisinopril- Lisinopril- No Lisinopril hydroCHLORO hydroCHLORO -hydroCHLO thiazide thiazide ROthiazide 10-12.5 MG 10-12.5 MG 10-12.5 MG Zestoretic Zestoretic No 1{table QD Zestoretic 10-12.5 MG 10-12.5 MG t} 10-12.5 MG Crestor 10 Crestor 10 No 1{table QD Crestor 10 MG MG t} MG Crestor 10 Crestor 10 No 1{table QD Crestor 10 MG MG t} MG Phentermine Phentermine No 1{capsu QD Phentermin HCl 37.5 MG HCl 37.5 MG le} e HCl 37.5 MG Zestoretic Zestoretic No 1{table QD Zestoretic 10-12.5 MG 10-12.5 MG t} 10-12.5 MG Lisinopril- Lisinopril- No Lisinopril hydroCHLORO hydroCHLORO -hydroCHLO thiazide thiazide ROthiazide 10-12.5 MG 10-12.5 MG 10-12.5 MG Lisinopril Lisinopril No Lisinopril 10 MG 10 MG 10 MG Crestor 10 Crestor 10 No 1{table QD Crestor 10 MG MG t} MG Phentermine Phentermine No 1{capsu QD Phentermin HCl 37.5 MG HCl 37.5 MG le} e HCl 37.5 MG Zestoretic Zestoretic No 1{table QD Zestoretic 10-12.5 MG 10-12.5 MG t} 10-12.5 MG Lisinopril- Lisinopril- No Lisinopril hydroCHLORO hydroCHLORO -hydroCHLO thiazide thiazide ROthiazide 10-12.5 MG 10-12.5 MG 10-12.5 MG Lisinopril Lisinopril No Lisinopril 10 MG 10 MG 10 MG Crestor 10 Crestor 10 No 1{table QD Crestor 10 MG MG t} MG Phentermine Phentermine No 1{capsu QD Phentermin HCl 37.5 MG HCl 37.5 MG le} e HCl 37.5 MG Zestoretic Zestoretic No 1{table QD Zestoretic 10-12.5 MG 10-12.5 MG t} 10-12.5 MG Lisinopril- Lisinopril- No Lisinopril hydroCHLORO hydroCHLORO -hydroCHLO thiazide thiazide ROthiazide 10-12.5 MG 10-12.5 MG 10-12.5 MG Lisinopril Lisinopril No Lisinopril 10 MG 10 MG 10 MG Crestor 10 Crestor 10 No 1{table QD Crestor 10 MG MG t} MG Phentermine Phentermine No 1{capsu QD Phentermin HCl 37.5 MG HCl 37.5 MG le} e HCl 37.5 MG Zestoretic Zestoretic No 1{table QD Zestoretic 10-12.5 MG 10-12.5 MG t} 10-12.5 MG Lisinopril- Lisinopril- No Lisinopril hydroCHLORO hydroCHLORO -hydroCHLO thiazide thiazide ROthiazide 10-12.5 MG 10-12.5 MG 10-12.5 MG Lisinopril Lisinopril No Lisinopril 10 MG 10 MG 10 MG Crestor 10 Crestor 10 No 1{table QD Crestor 10 MG MG t} MG Zestoretic Zestoretic No 1{table QD Zestoretic 10-12.5 MG 10-12.5 MG t} 10-12.5 MG Lisinopril Lisinopril No Lisinopril 10 MG 10 MG 10 MG Phentermine Phentermine No 1{capsu QD Phentermin HCl 37.5 MG HCl 37.5 MG le} e HCl 37.5 MG Lisinopril- Lisinopril- No Lisinopril hydroCHLORO hydroCHLORO -hydroCHLO thiazide thiazide ROthiazide 10-12.5 MG 10-12.5 MG 10-12.5 MG Rosuvastati Rosuvastati No Rosuvastat n Calcium n Calcium in Calcium 10 MG 10 MG 10 MG Lisinopril- Lisinopril- No Lisinopril hydroCHLORO hydroCHLORO -hydroCHLO thiazide thiazide ROthiazide 10-12.5 MG 10-12.5 MG 10-12.5 MG Zestoretic Zestoretic No 1{table QD Zestoretic 10-12.5 MG 10-12.5 MG t} 10-12.5 MG Lisinopril Lisinopril No Lisinopril 10 MG 10 MG 10 MG Crestor 10 Crestor 10 No 1{table QD Crestor 10 MG MG t} MG Zestoretic Zestoretic No 1{table QD Zestoretic 10-12.5 MG 10-12.5 MG t} 10-12.5 MG Lisinopril- Lisinopril- No Lisinopril hydroCHLORO hydroCHLORO -hydroCHLO thiazide thiazide ROthiazide 10-12.5 MG 10-12.5 MG 10-12.5 MG Crestor 10 Crestor 10 No 1{table QD Crestor 10 MG MG t} MG Lisinopril Lisinopril No Lisinopril 10 MG 10 MG 10 MG Rosuvastati Rosuvastati No Rosuvastat n Calcium n Calcium in Calcium 10 MG 10 MG 10 MG Zestoretic Zestoretic No QD Zestoretic 10-12.5 MG 10-12.5 MG 10-12.5 MG Phentermine Phentermine No 1{capsu QD Phentermin HCl 37.5 MG HCl 37.5 MG le} e HCl 37.5 MG Crestor 10 Crestor 10 No 1{table QD Crestor 10 MG MG t} MG Lisinopril Lisinopril No Lisinopril 10 MG 10 MG 10 MG Lisinopril Lisinopril No Lisinopril 10 MG 10 MG 10 MG Zestoretic Zestoretic No 1{table QD Zestoretic 10-12.5 MG 10-12.5 MG t} 10-12.5 MG Phentermine Phentermine No 1{capsu QD Phentermin HCl 37.5 MG HCl 37.5 MG le} e HCl 37.5 MG Lisinopril- Lisinopril- No Lisinopril hydroCHLORO hydroCHLORO -hydroCHLO thiazide thiazide ROthiazide 10-12.5 MG 10-12.5 MG 10-12.5 MG Crestor 10 Crestor 10 No 1{table QD Crestor 10 MG MG t} MG Lisinopril Lisinopril No Lisinopril 10 MG 10 MG 10 MG Zestoretic Zestoretic No 1{table QD Zestoretic 10-12.5 MG 10-12.5 MG t} 10-12.5 MG Phentermine Phentermine No 1{capsu QD Phentermin HCl 37.5 MG HCl 37.5 MG le} e HCl 37.5 MG Lisinopril- Lisinopril- No Lisinopril hydroCHLORO hydroCHLORO -hydroCHLO thiazide thiazide ROthiazide 10-12.5 MG 10-12.5 MG 10-12.5 MG Crestor 10 Crestor 10 No 1{table QD Crestor 10 MG MG t} MG Lisinopril Lisinopril No Lisinopril 10 MG 10 MG 10 MG Zestoretic Zestoretic No 1{table QD Zestoretic 10-12.5 MG 10-12.5 MG t} 10-12.5 MG Phentermine Phentermine No 1{capsu QD Phentermin HCl 37.5 MG HCl 37.5 MG le} e HCl 37.5 MG Lisinopril- Lisinopril- No Lisinopril hydroCHLORO hydroCHLORO -hydroCHLO thiazide thiazide ROthiazide 10-12.5 MG 10-12.5 MG 10-12.5 MG Crestor 10 Crestor 10 No 1{table QD Crestor 10 MG MG t} MG Lisinopril Lisinopril No Lisinopril 10 MG 10 MG 10 MG Phentermine Phentermine No 1{capsu QD Phentermin HCl 37.5 MG HCl 37.5 MG le} e HCl 37.5 MG Lisinopril- Lisinopril- No Lisinopril hydroCHLORO hydroCHLORO -hydroCHLO thiazide thiazide ROthiazide 10-12.5 MG 10-12.5 MG 10-12.5 MG Zestoretic Zestoretic No 1{table QD Zestoretic 10-12.5 MG 10-12.5 MG t} 10-12.5 MG Crestor 10 Crestor 10 No 1{table QD Crestor 10 MG MG t} MG Lisinopril Lisinopril No Lisinopril 10 MG 10 MG 10 MG Phentermine Phentermine No 1{capsu QD Phentermin HCl 37.5 MG HCl 37.5 MG le} e HCl 37.5 MG Vital Signs Vital Name Observation Time Observation Value Comments Source height 2021-11-27 14:50:00 71 [in_i] [facility] weight 2021-11-27 14:50:00 172.1 [lb_av] [facility] temperature 2021-11-27 14:50:00 98.4 [degF] [facility] bmi 2021-11-27 14:50:00 24 kg/m2 [facility] oximetry 2021-11-27 14:50:00 97 % [facility] respiratory rate 2021-11-27 14:50:00 17 /min Comm on [facility] blood pressure 2021-11-27 14:50:00 135 mm[Hg] [facility] blood pressure 2021-11-27 14:50:00 72 mm[Hg] [facility] diastolic [facility] height 2021-08-17 11:00:00 71 [in_i] [facility] weight 2021-08-17 11:00:00 167.2 [lb_av] [facility] temperature 2021-08-17 11:00:00 97.2 [degF] [facility] bmi 2021-08-17 11:00:00 23.32 kg/m2 [facility] oximetry 2021-08-17 11:00:00 99 % [facility] respiratory rate 2021-08-17 11:00:00 17 /min Comm on [facility] blood pressure 2021-08-17 11:00:00 139 mm[Hg] [facility] blood pressure 2021-08-17 11:00:00 79 mm[Hg] [facility] diastolic [facility] height 2021-03-02 11:10:00 71 [in_i] Common [facility] weight 2021-03-02 11:10:00 165 [lb_av] Common [facility] temperature 2021-03-02 11:10:00 99 [degF] Common [facility] bmi 2021-03-02 11:10:00 23.01 kg/m2 [facility] blood pressure 2021-03-02 11:10:00 130 mm[Hg] [facility] blood pressure 2021-03-02 11:10:00 70 mm[Hg] [facility] diastolic [facility] Procedures This patient has no known procedures. Encounters Start End Encounter Admission Attending Care Care Encounter Source Date/Time Date/Time Type Type Clinicians Facility Department ID 2021-11-27 Outpatient Olguin, STLMLC STLC [id number] Common 14:43:01 Bharath [facility] 2021-08-17 Outpatient Olguin, STLMLC ST[facility] [id number] Common 10:31:00 Bharath [facility] 2021-06-07 Outpatient Olguin, STLMLC STLMLC [id number] Common 14:36:58 Bharath [facility] 2021-06-07 Outpatient Olguin, STLMLC STLMLC [id number] Common 14:06:27 Bharath [facility] 2021-06-07 Outpatient Olguin, STLMLC STLMLC [id number] Common 14:03:25 Bharath [facility] 2021-06-07 Outpatient Olguin, STLMLC STLMLC [id number] Common 12:49:26 Bharath [id number] [facility] 2021-06-07 Outpatient Olguin, STLMLC STLMLC [id number] Common 11:52:38 Bharath [id number] [facility] 2021-06-07 Outpatient Olguin, STLMLC STLMLC [id number] Common 11:51:58 Bharath [id number] [facility] 2021-06-07 Outpatient Olguin, STLMLC STLMLC [id number] Common 11:21:57 Bharath [id number] [facility] 2021-06-07 Outpatient Olguin, STLMLC STLMLC [id number] Common 11:18:08 Bharath [id number] [facility] 2021-06-07 Outpatient Olguin, STLMLC STLMLC [id number] Common 11:14:20 Bharath [id number] [facility] 2021-06-07 Outpatient Olguin, STLMLC STLMLC [id number] Common 11:14:02 Bharath [id number] [facility] 2021-06-07 Outpatient Olguin, STLMLC STLMLC [id number] Common 11:02:03 Bharath [id number] [facility] 2022-05-24 2022-05-24 (TEL) STLMLC STLMLC [id number] Co mmon 00:00:00 00:00:00 [facility] 2021-11-27 2021-11-27 OFFICE STLMLC STLMLC [id number] Co mmon 00:00:00 00:00:00 VISIT EST Spir it PT LEVEL 3 [facility] 2021-08-17 2021-08-17 OFFICE STLMLC STLMLC [id number] Co mmon 00:00:00 00:00:00 VISIT EST Spir it PT LEVEL 3 [facility] 2021-08-09 2021-08-09 (TEL) STLMLC STLMLC [id number] Co mmon 00:00:00 00:00:00 [facility] 2021-08-07 2021-08-07 (TEL) STLMLC STLMLC [id number] Co mmon 00:00:00 00:00:00 [facility] 2021-06-19 2021-06-19 (TEL) STLMLC STLMLC [id number] Co mmon 00:00:00 00:00:00 [facility] 2021-05-30 2021-05-30 (TEL) STLMLC STLMLC [id number] Co mmon 00:00:00 00:00:00 [facility] 2021-03-10 2021-03-10 OFFICE STLMLC STLMLC [id number] Co mmon 00:00:00 00:00:00 VISIT Spirit ESTAB PT - [facility] LEVEL 1 [facility] 2021-03-10 2021-03-10 (TEL) STLMLC STLMLC [id number] Co mmon 00:00:00 00:00:00 [facility] 2021-03-06 2021-03-06 (TEL) STLMLC STLMLC [id number] Co mmon 00:00:00 00:00:00 [facility] 2021-03-02 2021-03-02 (TEL) STLMLC STLMLC [id number] Co mmon 00:00:00 00:00:00 [facility] 2021-03-02 2021-03-02 OFFICE STLMLC STLMLC [id number] Co mmon 00:00:00 00:00:00 VISIT EST Spir it PT LEVEL 3 [facility] 2021-02-17 2021-02-17 (TEL) STLMLC STLMLC [id number] Co mmon 00:00:00 00:00:00 [facility] 2020-09-14 2020-09-14 Outpatient STLMLC STLMLC [id number] Common 00:00:00 00:00:00 [facility] 2020-08-18 2020-08-18 Outpatient STLMLC STLMLC [id number] Common 00:00:00 00:00:00 [facility] 2020-01-11 2020-01-11 [id number] Common 13:12:00 13:12:[address] [facility] 2020-01-06 2020-01-06 [facility] [id number] Common 08:00:00 08:00:[address] [facility] 2020-01-05 2020-01-05 [facility] [id number] Common 10:40:00 10:40:[address] [facility] [address] [facility] 2019-12-31 2019-12-31 [facility] [id number] Common 16:30:00 16:30:[address] [facility] 2019-12-31 2019-12-31 [facility] [id number] Common 15:52:00 15:52:[address] [facility] 2019-11-02 2019-11-02 [facility] [id number] Common 09:11:00 09:11:[address] [facility] 2019-10-30 2019-10-30 [facility] [id number] Common 13:30:00 13:30:[address] [facility] [address] [facility] 2019-10-07 2019-10-07 [facility] [id number] Common 16:30:00 16:30:[address] [facility] 2019-07-29 2019-07-29 [facility] [id number] Common 11:15:00 11:15:[address] [facility] 2019-06-30 2019-06-30 [facility] [id number] Common 13:15:00 13:15:[address] [facility] 2019-06-16 2019-06-16 [facility] [id number] Common 14:52:00 14:52:[address] [facility] 2019-06-03 2019-06-03 [facility] [id number] Common 10:53:00 10:53:[address] [facility] 2019-04-22 2019-04-22 [facility] [id number] Common 14:09:00 14:09:[address] [facility] 2019-04-02 2019-04-02 [facility] [id number] Common 11:07:00 11:07:[address] [facility] 2019-03-30 2019-03-30 [facility] [id number] Common 11:54:00 11:54:[address] [facility] 2019-02-10 2019-02-10 [facility] [id number] Common 13:45:00 13:45:[address] [facility] 2018-10-31 2018-10-31 [facility] [id number] Common 09:15:00 09:15:[address] [facility] 2018-08-25 2018-08-25 [facility] [id number] Common 15:25:00 15:25:[address] [facility] 2018-07-04 2018-07-04 [facility] [id number] Common 09:45:00 09:45:[address] [facility] 2018-06-11 2018-06-11 [facility] [id number] Common 11:13:00 11:13:[address] [facility] 2018-02-13 2018-02-13 [facility] [id number] Common 15:48:00 15:48:[address] [facility] 2017-10-29 2017-10-29 [facility] [id number] Common 09:30:00 09:30:[address] [facility] 2017-07-29 2017-07-29 [facility] [id number] Common 09:30:00 09:30:[address] [facility] Results Test Description Test Time Test Comments Results Result Comments Source SARS-COV 2 Antigen SARS-COV 2 Antigen SARS-COV 2 Antigen SARS-COV 2 Antigen
[2022-06-04] MEDS ORDERED: NA CHLORIDE 0.9% 500 ML ONE ×2 (13:40→14:36)
[2022-06-04] MEDS ORDERED: ASPIRIN 81 MG CHEWABLE TABLET ONE (13:40)
--- NOTE | 2022-06-04 13:44 | RAD REPORT ---
EXAM DESCRIPTION: RAD - Chest Single View - 06/04/2022 1:36 pm CLINICAL HISTORY: CHEST PAIN COMPARISON: None TECHNIQUE: AP portable chest image was obtained 06/04/2022 1:36 pm . FINDINGS: Lungs are clear. Portable technique and overlying breast soft tissues increase density ove r each lower lung field. Heart and vasculature are normal. No measurable pleural effusion and no pneu mothorax. No acute bony abnormality seen. No acute aortic findings suspected. IMPRESSION: No acute cardiopulmonary process.
[2022-06-04] MEDS ORDERED: METOPROLOL TAR 25 MG TAB ONE (13:45)
[2022-06-04 14:19] LABS: Albumin 4.1 g/dL (3.4-5.0); Bilirubin Direct 0.1 mg/dL (0-0.2); Bilirubin Total 0.4 mg/dL (0.2-1.0); Magnesium 2.1 mg/dL (1.6-2.4); Protein, Total 8.5 g/dL (6.4-8.2); Thyroid Stimulating Hormone 1.78 uIU/mL (0.358-3.740); Troponin High Sensitivity 45.4 pg/mL (<58.9)
[2022-06-04 14:20] LABS: Protime INR 1.05
[2022-06-04 14:22] LABS: Absolute Lymphocytes (CBC) 1.7 K/uL (0.7-4.9); Hematocrit 40.4 % (36.0-45.0); Lymphocytes % 15.6 % (15.3-44.8); MCV 96.6 fL (80-100); MPV 7.7 fL (7.6-11.3); RBC Red Blood Cell Count 4.18 M/uL (3.86-4.86)
--- NOTE | 2022-06-04 16:23 | EDPHYS ---
Physician Documentation [facility] Name: Cristy Diaz Age: 56 yrs Sex: Female : 1965 Arrival Date: 06/04/2022 Time: 12:50 Bed 8 Private MD: ED Physician Francois Subramanian HPI: 06/04 13:39 This 56 yrs old Female presents to ER via Ambulatory with complaints of snw Anxiety, Near Syncope. 13:39 The patient or guardian reports chest pain that is located primarily in the substernal snw area, anterior chest wall, bilaterally. Onset: suddenly. The pain does not radiate. Associated signs and symptoms: Pertinent positives: diaphoresis, lightheadedness, near-syncope, shortness of breath. The chest pain is described as a pressure, squeezing. Duration: The patient or guardian reports a single episode, that is now resolved. Severity of pain: At its worst the pain was moderate. The patient has not experienced similar symptoms in the past, but family has similar symptoms. The patient has not recently seen a physician. Sees Dr. Olguin. Is on antihypertensive and statin, does not take them regularly. 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 Pt's coworker states pt takes energy powder drinks all day and even to the point of pt describing needles around face/mouth after the ingestions. Historical: - Allergies: 13:07 No Known Allergies; ss - PMHx: 13:07 Hypertensive disorder; high cholesterol; ss - PSHx: 13:07 None; ss - Immunization history:: Client reports having NOT received the Covid vaccine. - Social history:: Smoking status: Patient denies any tobacco usage or history of. Patient uses alcohol, only on a social basis. Patient/guardian denies using street drugs. ROS: 13:42 Constitutional: Positive for aniety - "I thought I was having a heart attack". snw 16:23 Cardiovascular: Positive for chest pain. snw 16:23 Respiratory: Positive for shortness of breath. 16:23 All other systems are negative. snw Exam: 13:38 Head/Face: Normocephalic, atraumatic. Eyes: Pupils equal round and reactive to light, snw extra-ocular motions intact. Lids and lashes normal. Conjunctiva and sclera are non-icteric and not injected. Cornea within normal limits. Periorbital areas with no swelling, redness, or edema. ENT: Nares patent. No nasal discharge, no septal abnormalities noted. Tympanic membranes are normal and external auditory canals are clear. Oropharynx with no redness, swelling, or masses, exudates, or evidence of obstruction, uvula midline. Mucous membranes moist. Neck: Trachea midline, no thyromegaly or masses palpated, and no cervical lymphadenopathy. Supple, full range of motion without nuchal rigidity, or vertebral point tenderness. No Meningismus. Chest/axilla: Normal chest wall appearance and motion. Nontender with no deformity. No lesions are appreciated. 13:38 Respiratory: Lungs have equal breath sounds bilaterally, clear to auscultation and percussion. No rales, rhonchi or wheezes noted. No increased work of breathing, no retractions or nasal flaring. Abdomen/GI: Soft, non-tender, with normal bowel sounds. No distension or tympany. No guarding or rebound. No evidence of tenderness throughout. Back: No spinal tenderness. No costovertebral tenderness. Full range of motion. Skin: Warm, dry with normal turgor. Normal color with no rashes, no lesions, and no evidence of cellulitis. MS/ Extremity: Pulses equal, no cyanosis. Neurovascular intact. Full, normal range of motion. Neuro: Awake and alert, GCS 15, oriented to person, place, time, and situation. Cranial nerves II-XII grossly intact. Motor strength 5/5 in all extremities. Sensory grossly intact. Cerebellar exam normal. Normal gait. 13:38 Constitutional: The patient appears alert, awake, anxious. 13:38 Cardiovascular: Rate: tachycardic, Rhythm: regular, Pulses: Pulses are 2+ in right posterior tibial artery and left posterior tibial artery. Heart sounds: normal, Edema: is not appreciated. 13:38 Psych: Behavior/mood is pleasant, cooperative, anxious. Vital Signs: 13:04 BP 135 / 84; Pulse 140; Resp 18; Temp 99.0(TE); Pulse Ox 100% on R/A; Weight 72.57 kg; ss Height 5 ft. 11 in. (180.34 cm); Pain 0/10; 13:15 BP 116 / 85; Pulse 140; Resp 22; Pulse Ox 99% on R/A; ko1 14:12 BP 124 / 53; Pulse 117; Resp 19; Pulse Ox 100% on R/A; Pain 0/10; em1 14:21 BP 130 / 72; Pulse 109; Resp 16; Pulse Ox 99% ; ko1 14:50 BP 128 / 65; Pulse 105; Resp 18; Pulse Ox 100% ; ko1 15:32 BP 110 / 83; Pulse 92; Resp 18; Pulse Ox 100% ; ko1 13:04 Body Mass Index 22.32 (72.57 kg, 180.34 cm) ss MDM: 13:13 Patient medically screened. [facility] 13:43 HEART Score: History: Highly Suspicious (2), ECG: Non specific repolarization snw disturbance / LBTB / PM (1), Age: > 45 and < 65 years (1), Risk Factors: > or = 3 Risk factors for atherosclerotic disease (2), [Hypercholesterolemia] [Hypertension] [+ Family HX]. Data reviewed: vital signs, nurses notes, lab test result(s), EKG, radiologic studies. Consideration of Admission/Observation Escalation of care including admission/observation considered. will await troponin. 14:00 The patient was given aspirin in the Emergency Department. Historians other than the [facility] Patient: Co-worker. Care significantly affected by the following chronic conditions: Hypertension, hyperlipidemia. 15:56 Management of patient was discussed with the following: Hospitalist: admission to [facility] requested, awaiting consult. 16:22 Differential diagnosis: abnormal EKG, anxiety, coronary artery disease gastritis, snw gastroesophageal reflux disease (GERD), pulmonary embolus. 16:29 Management of patient was discussed with the following: Hospitalist: pt spoke with Dr. ana Morrell re: discomfort with admission, will repeat troponin and evaluate any change. 06/04 13:22 Order name: Basic Metabolic Panel; Complete Time: 14:21 [facility] 06/04 13:22 Order name: CBC with Diff; Complete Time: 14:34 [facility] 06/04 13:22 Order name: LFT's; Complete Time: 14:21 [facility] 06/04 13:22 Order name: Magnesium; Complete Time: 14:21 [facility] 06/04 13:22 Order name: NT PRO-BNP; Complete Time: 14:21 06/04 13:22 Order name: PT-INR; Complete Time: 14:21 06/04 13:22 Order name: Troponin HS; Complete Time: 14:21 06/04 13:22 Order name: XRAY Chest (1 view); Complete Time: 13:44 06/04 13:22 Order name: TSH; Complete Time: 14:21 06/04 15:48 Order name: SARS RAPID; Complete Time: 16:43 06/04 16:23 Order name: DD; Complete Time: 17:26 06/04 16:31 Order name: Troponin HS; Complete Time: 17:37 06/04 13:10 Order name: EKG; Complete Time: 13:11 06/04 13:10 Order name: EKG - Nurse/Tech; Complete Time: 13:32 06/04 13:22 Order name: Cardiac monitoring; Complete Time: 13:33 06/04 13:22 Order name: IV Saline Lock; Complete Time: 13:43 06/04 13:22 Order name: Labs collected and sent; Complete Time: 13:43 06/04 13:22 Order name: O2 Per Protocol; Complete Time: 13:33 06/04 13:22 Order name: O2 Sat Monitoring; Complete Time: 13:33 06/04 16:31 Order name: EKG; Complete Time: 16:32 06/04 16:31 Order name: EKG - Nurse/Tech; Complete Time: 17:52 snw EC:42 Rate is 130 beats/min. Rhythm is regular. QRS [place] is Normal. CA interval is normal. snw QRS interval is normal. QT interval is normal. No Q waves. Clinical impression: NSR w/ Non-specific ST/T Changes and Sinus tachycardia. 17:22 Rate is 74 beats/min. Rhythm is regular. QRS [place] is Normal. CA interval is normal. QRS snw interval is normal. Clinical impression: NSR w/ Non-specific ST/T Changes. Administered Medications: 13:42 Drug: NS 0.9% 500 ml Route: IV; Rate: bolus; Site: right hand; ko1 17:52 Follow up: Response: No adverse reaction ap3 17:53 Follow up: IV Status: Completed infusion ap3 13:43 Drug: Aspirin Chewable Tablet 324 mg Route: PO; ko1 17:52 Follow up: Response: No adverse reaction ap3 13:43 Drug: Metoprolol 25 mg Route: PO; ko1 17:52 Follow up: Response: No adverse reaction ap3 14:33 Drug: NS 0.9% 500 ml Route: IV; Rate: bolus; Site: right wrist; ko1 17:52 Follow up: Response: No adverse reaction ap3 17:53 Follow up: IV Status: Completed infusion ap3 Disposition: 19:05 Co-signature as Attending Physician, Francois AKERS was immediately available on-site ms3 in the Emergency Department for consultation in the care of the patient. Disposition Summary: 06/04/22 16:22 Hospitalization Ordered Location: Telemetry/[facility] (observation) snw Condition: Stable snw Problem: new snw Symptoms: have improved snw Bed/Room Type: Standard snw Room Assignment: 416(06/04/22 18:50) bd Diagnosis - Chest pain, unspecified snw - Non ST elevation PR snw Forms: - Medication Reconciliation Form snw - SBAR form snw Signatures: Dispatcher [employer] EDMS Maryjane Padron Shelly, VESSEL SCRAPPER-C VESSEL SCRAPPER-Csnw Zoey Guerra RN RN ss Sims, Marcus, DO DO ms3 Reta Calabrese RN RN ko1 Stacy Silva RN ap3 Corrections: (The following items were deleted from the chart) 15:56 14:00 Counseling: I had a detailed discussion with the patient and/or guardian snw regarding: the historical points, exam findings, and any diagnostic results supporting the discharge/admit diagnosis, the need for further work-up and treatment in the hospital, snw 15:56 14:00 I considered the following discharge prescriptions or medication management in w the emergency department Medications were administered in the Emergency Department. See MAR [facility] 15:56 14:00 Management of patient was discussed with the following: Hospitalist: requested snw obs admission, awaiting consult. snw 16:31 16:22 Observation snw snw 16:31 16:22 Michael Morrell snw snw 16:44 16:23 Chart complete. snw snw 18:50 16:22 snw bd
--- NOTE | 2022-06-04 16:23 | ER ---
Nurse's Notes [facility] Name: Cristy Diaz Age: 56 yrs Sex: Female : 1965 Arrival Date: 06/04/2022 Time: 12:50 Bed 8 Private MD: Diagnosis: Chest pain, unspecified;Non ST elevation [place] Presentation: 06/04 13:04 Chief complaint: Patient states: Near syncopal episode that occurred 1 hour ago. Pt ss reports she was at work, felt really warm and felt as if she might pass out, so she sat down and put her head between head between her knees. Coronavirus screen: Client denies travel out of the [place] in the last 14 days. Ebola Screen: Patient denies exposure to infectious person. Patient denies travel to an Ebola-affected area in the 21 days before illness onset. Initial Sepsis Screen: Does the patient meet any 2 criteria? No. Patient's initial sepsis screen is negative. Does the patient have a suspected source of infection? No. Patient's initial sepsis screen is negative. Risk Assessment: Do you want to hurt yourself or someone else? Patient reports no desire to harm self or others. Onset of symptoms was June 04, 2022. 13:04 Method Of Arrival: Ambulatory ss 13:04 Acuity: NOELLE 2 ss Historical: - Allergies: 13:07 No Known Allergies; ss - PMHx: 13:07 Hypertensive disorder; high cholesterol; ss - PSHx: 13:07 None; ss - Immunization history:: Client reports having NOT received the Covid vaccine. - Social history:: Smoking status: Patient denies any tobacco usage or history of. Patient uses alcohol, only on a social basis. Patient/guardian denies using street drugs. Screenin:15 [facility] ED Fall Risk Assessment (Adult) History of falling in the last 3 months, ko1 including since admission No falls in past 3 months (0 pts) Confusion or Disorientation No (0 pts) Intoxicated or Sedated No (0 pts) Impaired Gait No (0 pts) Mobility Assist Device Used No (0 pt) Altered Elimination No (0 pt) Score/Fall Risk Level 0 - 2 = Low Risk Oriented to surroundings, Maintained a safe environment, Educated pt \T\ family on fall prevention, incl call for assistance when getting out of bed, Assessed \T\ reinforced patient's understanding of fall precautions, Provided non-skid footwear, Hourly rounding (assess needs \T\ fall precautionary measures) done, Used ambulatory aids as needed (educated on \T\ assisted with), Used gait belt as appropriate. Abuse screen: Denies threats or abuse. Denies injuries from another. Nutritional screening: No deficits noted. Tuberculosis screening: No symptoms or risk factors identified. Assessment: 13:30 General: Appears in no apparent distress. comfortable, Behavior is cooperative, ko1 appropriate for age, anxious. Pain:. Neuro: No deficits noted. Cardiovascular: Rhythm is sinus tachycardia. Respiratory: No deficits noted. GI: No deficits noted. : No deficits noted. EENT: No deficits noted. Derm: No deficits noted. Musculoskeletal: No deficits noted. 19:41 Reassessment: report called to Nyla JOSEPH for room 416. bb Vital Signs: 13:04 BP 135 / 84; Pulse 140; Resp 18; Temp 99.0(TE); Pulse Ox 100% on R/A; Weight 72.57 kg; ss Height 5 ft. 11 in. (180.34 cm); Pain 0/10; 13:15 BP 116 / 85; Pulse 140; Resp 22; Pulse Ox 99% on R/A; ko1 14:12 BP 124 / 53; Pulse 117; Resp 19; Pulse Ox 100% on R/A; Pain 0/10; em1 14:21 BP 130 / 72; Pulse 109; Resp 16; Pulse Ox 99% ; ko1 14:50 BP 128 / 65; Pulse 105; Resp 18; Pulse Ox 100% ; ko1 15:32 BP 110 / 83; Pulse 92; Resp 18; Pulse Ox 100% ; ko1 13:04 Body Mass Index 22.32 (72.57 kg, 180.34 cm) ED Course: 12:50 Patient arrived in ED. rg4 13:01 [facility]C [facility] snw 13:01 Francois Subramanian DO is Attending Physician. snw 13:07 Triage completed. ss 13:08 Arm band placed on right wrist. ss 13:15 Patient has correct armband on for positive identification. Placed in gown. Bed in low ko1 position. Call light in reach. Side rails up X 1. Adult w/ patient. Client placed on continuous cardiac and pulse oximetry monitoring. NIBP monitoring applied. bus repair supervisor on. Door closed. Noise minimized. Lights dimmed. Warm blanket given. 13:17 Reta Calabrese, RN is Primary Nurse. ko1 13:38 XRAY Chest (1 view) In Process Unspecified. EDMS 13:45 Initial lab(s) drawn, by hi, sent to lab. Inserted saline lock: 22 gauge in right em1 wrist, using aseptic technique. Blood collected. 16:12 SARS RAPID Sent. ap3 16:21 Michael Morrell MD is Hospitalizing Provider. snw 17:02 Troponin HS Sent. ko1 17:02 DD Sent. ko1 19:14 Primary Nurse role handed off by Reta Calabrese, JAKE mw2 19:14 role handed off by Stacy Silva RN mw2 Administered Medications: 13:42 Drug: NS 0.9% 500 ml Route: IV; Rate: bolus; Site: right hand; ko1 17:52 Follow up: Response: No adverse reaction ap3 17:53 Follow up: IV Status: Completed infusion ap3 13:43 Drug: Aspirin Chewable Tablet 324 mg Route: PO; ko1 17:52 Follow up: Response: No adverse reaction ap3 13:43 Drug: Metoprolol 25 mg Route: PO; ko1 17:52 Follow up: Response: No adverse reaction ap3 14:33 Drug: NS 0.9% 500 ml Route: IV; Rate: bolus; Site: right wrist; ko1 17:52 Follow up: Response: No adverse reaction ap3 17:53 Follow up: IV Status: Completed infusion ap3 Outcome: 16:22 Decision to Hospitalize by Provider. snw 20:09 Patient left the ED. bb Signatures: Dispatcher [employer] EDPR Caterina Phillip, HAIR TINTER-C HAIR TINTER-Csnw Magdalena Desai RN Raúl Snowden em1 Zoey Guerra RN RN ss Garcia, Rubi 4 Stacy Silva RN RN ap3 Klaus Noriega mw2 Reta Calabrese, JAKE RN ko1
[2022-06-04 16:41] LABS: SARS-CoV-2 Antigen Rapid Res Negative (Negative)
--- NOTE | 2022-06-04 16:41 | P.CNS ---
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 The facility she advised her to go to the emergency room. She denies having chest pain. She denies shortness of breath. She states she has been having a lot of depression. She has been seeing her PCP for the depression. She states that her children are grown up and she does not have a significant other and that keeps her very depressed. She has been in our ER with suicidal ideations. She is been following for further evaluation. She denies any chest pain and she works out quite a bit. She does drink preworkout prior to working out and she is worried about her caffeine consumption. Otherwise, she denies any new complaints. She wants to go home. I will repeat her troponin and if this is negative she should be able to discharge home. Allergies No Known Allergies Allergy (Verified 01/19/15 13:58) Home Medications: NK [No Home Meds] 01/19/15 - Past Medical/Surgical History Diabetic: No -: Depression -: Hypertension -: Incision and drainage abcess - Family History Mother Medical History: Hypertension Notes: Controlled. - Social History Smoking Status: Never smoker Alcohol use: Yes CD- Drugs: No Caffeine use: Yes Review of Systems 10-point ROS is otherwise unremarkable Physical Examination Reviewed General: Alert, In no apparent distress, Oriented x3 HEENT: Atraumatic, Normocephalic Neck: Supple, 2+ carotid pulse no bruit, JVD not distended, No Thyromegaly Respiratory: Clear to auscultation bilaterally, Normal air movement Cardiovascular: Regular rate/rhythm, Normal S1 S2 Capillary refill: <2 Seconds Gastrointestinal: Normal bowel sounds, Soft and benign, Non-distended Musculoskeletal: No clubbing, No swelling Integumentary: No rashes, No erythema Neurological: Normal gait, Normal speech, Normal strength at 5/5 x4 extr, Normal tone, Sensation intact, Cranial nerves 3-12 intact Laboratory Data (last 24 hrs) 06/04/22 13:40: PT 11.6, INR 1.05 06/04/22 13:40: WBC 10.60, Hgb 13.8, Hct 40.4, Plt Count 340 06/04/22 13:40: Sodium 140, Potassium 4.0, BUN 30 H, Creatinine 1.48 H, Glucose 164 H, Magnesium 2.1, Total Bilirubin 0.4, AST 36, ALT 25, Alkaline Phosphatase 77 - Problems (1) Diaphoresis Current Visit: Yes Status: Acute (2) History of hypertension Current Visit: Yes Status: Acute Conclusions/ Impression: Plan: 1. Repeat troponins. If this is negative she should be able to go home. EKG is unremarkable. She does have heart rate in the 90s. It comes down to the 80s while she is resting. Have told her to limit her caffeine consumption. She is also been dealing with depression and she needs to be on antidepressants. She will follow-up with her PCP regarding this. If her repeat troponin is elevated with then we will go ahead and admit her for further evaluation. Her symptoms occurred over 6 hours ago. We should see a rise in her troponins at this time. Anticipate discharge with outpatient follow-up. Critical Care: No Time Spent Managing Pts care (In Minutes): 45
[2022-06-04] MEDS ORDERED: ACETAMINOPHEN 500 MG TAB PO PRN (17:32)
[2022-06-04] MEDS ORDERED: MORPHINE 2 MG/ML SYR IV PRN (17:44)
--- NOTE | 2022-06-04 17:45 | P.HP ---
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 The facility she advised her to go to the emergency room. She denies having chest pain. She denies shortness of breath. She states she has been having a lot of depression. She has been seeing her PCP for the depression. She states that her children are grown up and she does not have a significant other and that keeps her very depressed. She has been in our ER with suicidal ideations. She is been following for further evaluation. She denies any chest pain and she works out quite a bit. She does drink preworkout prior to working out and she is worried about her caffeine consumption. Otherwise, she denies any new complaints. She wants to go home. I will repeat her troponin and if this is negative she should be able to discharge home. Allergies No Known Allergies Allergy (Verified 01/19/15 13:58) Home Medications: NK [No Home Meds] 01/19/15 - Past Medical/Surgical History Diabetic: No -: Depression -: Hypertension -: Incision and drainage abcess - Family History Mother Medical History: Hypertension Notes: Controlled. - Social History Smoking Status: Never smoker Alcohol use: Yes CD- Drugs: No Caffeine use: Yes Review of Systems 10-point ROS is otherwise unremarkable Physical Examination Reviewed General: Alert, In no apparent distress, Oriented x3 HEENT: Atraumatic, Normocephalic Neck: Supple, 2+ carotid pulse no bruit, JVD not distended, No Thyromegaly Respiratory: Clear to auscultation bilaterally, Normal air movement Cardiovascular: Regular rate/rhythm, Normal S1 S2 Capillary refill: <2 Seconds Gastrointestinal: Normal bowel sounds, Soft and benign, Non-distended Musculoskeletal: No clubbing, No swelling Integumentary: No rashes, No erythema Neurological: Normal gait, Normal speech, Normal strength at 5/5 x4 extr, Normal tone, Sensation intact, Cranial nerves 3-12 intact Laboratory Data (last 24 hrs) 06/04/22 13:40: PT 11.6, INR 1.05 06/04/22 13:40: WBC 10.60, Hgb 13.8, Hct 40.4, Plt Count 340 06/04/22 13:40: Sodium 140, Potassium 4.0, BUN 30 H, Creatinine 1.48 H, Glucose 164 H, Magnesium 2.1, Total Bilirubin 0.4, AST 36, ALT 25, Alkaline Phosphatase 77 - Problems (1) Diaphoresis Current Visit: Yes Status: Acute (2) History of hypertension Current Visit: Yes Status: Acute Conclusions/ Impression: Plan: 1. Repeat troponins elevated. EKG is unremarkable. She does have heart rate in the 90s. It comes down to the 80s while she is resting. Have told her to limit her caffeine consumption. She is also been dealing with depression and she needs to be on antidepressants. Spoke with cardiology; NPO AFTER MIDNIGHT; HEPARIN DRIP; STATIN THERAPY; Critical Care: No Time Spent Managing Pts care (In Minutes): 45
[2022-06-04] MEDS ORDERED: HEPARIN/D5W 25,000 UNIT/500 ML BAG IV PRN (18:00)
[2022-06-04] MEDS ORDERED: ENOXAPARIN 100 MG/ML SYR SQ SCH (18:00)
[2022-06-04] MEDS ORDERED: LORazepam 2 MG/ML VIAL IV ONE (19:02)
[2022-06-04] MEDS ORDERED: ATORVASTATIN 80 MG TAB PO SCH (21:00)
[2022-06-04] MEDS: METOPROLOL TAR 50 MG TAB PO SCH (21:19)
[2022-06-04 21:27] VITALS: BMI 23.1
[2022-06-05 02:50] LABS: Absolute Lymphocytes (CBC) 3.1 K/uL (0.7-4.9); Hematocrit 33.9 % (36.0-45.0); Lymphocytes % 36.8 % (15.3-44.8); MCV 96.7 fL (80-100); MPV 7.9 fL (7.6-11.3)
[2022-06-05 03:12] LABS: Potassium 4.2 mmol/L (3.5-5.1)
[2022-06-05 03:16] LABS: Troponin High Sensitivity 280.2 pg/mL (<58.9)
[2022-06-05] MEDS ORDERED: ALPRAZOLAM 0.5 MG TABLET PO ONE (08:11)
[2022-06-05] MEDS: METOPROLOL TAR 50 MG TAB PO SCH (09:09)
[2022-06-05] MEDS ORDERED: MIDAZOLAM HCL 2 MG/2 ML INJ ONE ×2 (11:19→12:49)
[2022-06-05] MEDS ORDERED: HEPARIN 5000 UNIT/ML 1 ML VIAL ONE (11:19)
[2022-06-05] MEDS ORDERED: HEPA 1000U/500MLS 2,000 UNIT/1,000 ML BAG IV ONE (11:19)
[2022-06-05] MEDS ORDERED: LIDOCAINE 1% 20 ML MDV ONE (11:19)
[2022-06-05] MEDS ORDERED: VERAPAMIL HCL 10 MG/4 ML VIAL IV ONE (11:19)
[2022-06-05] MEDS ORDERED: NITROGLYCERIN 100 MCG/ML SYR (for cath lab use only) IV ONE (11:20)
[2022-06-05] MEDS ORDERED: FENTANYL CITR 100 MCG/2 ML ONE (11:20)
[2022-06-05] MEDS ORDERED: HEPARIN 10,000 UNIT/10 ML VIAL IV ONE (11:20)
[2022-06-05] MEDS ORDERED: ATROPINE SULF 1 MG/10 ML SYR IV ONE (11:20)
[2022-06-05 12:09] VITALS: TEMP 98.6
--- NOTE | 2022-06-05 12:26 | EKG ---
Test Date: 2022-06-04 Test Time: 17:18:46 Business Employment Specialist: DORA MEASUREMENT RESULTS: Intervals: Rate: 74 [place]: 158 QRSD: 62 QT: 360 QTc: 399 [place]: P: 59 [place]: 158 QRS: 60 T: 26 INTERPRETIVE STATEMENTS: Normal sinus rhythm Normal ECG Compared to ECG 06/04/2022 17:11:51 No significant changes Electronically Signed On 06-05-22 12:24:54 AERONAUTICAL RESEARCH ENGINEER by Jorge Baldwin
--- NOTE | 2022-06-05 12:26 | EKG ---
Test Date: 2022-06-04 Test Time: 17:11:51 Employment Officer: DORA MEASUREMENT RESULTS: Intervals: Rate: 74 RI: 122 QRSD: 88 QT: 376 QTc: 417 [place]: P: 43 RI: 122 QRS: 10 T: 31 INTERPRETIVE STATEMENTS: Normal sinus rhythm Normal ECG Compared to ECG 06/04/2022 13:29:23 Sinus tachycardia no longer present Myocardial infarct finding no longer present Electronically Signed On 06-05-22 12:24:55 SPECIALIST FIELD ENGINEER by Jorge Baldwin
--- NOTE | 2022-06-05 12:28 | EKG ---
Test Date: 2022-06-04 Test Time: 13:29:23 Ice Grinder: DORA MEASUREMENT RESULTS: Intervals: Rate: 130 ME: 122 QRSD: 82 QT: 302 QTc: 444 [place]: P: 52 ME: 122 QRS: -3 T: 57 INTERPRETIVE STATEMENTS: Sinus tachycardia Cannot rule out Anterior infarct, age undetermined Abnormal ECG Compared to ECG 01/23/2020 08:09:00 Myocardial infarct finding now present Sinus rhythm no longer present Electronically Signed On 06-05-22 12:25:22 RIVETER HAND by Jorge Baldwin
[2022-06-05] MEDS ORDERED: NA CHLORIDE 0.9% 500 ML ONE (12:34)
--- NOTE | 2022-06-05 14:36 | ECHO ---
HEIGHT: 5 ft 11 in WEIGHT: 165 lb 11.2 oz DATE OF STUDY: 06/05/[address]: Michael Morrell MD 2-DIMENSIONAL: YES M.MODE: YES DOPPLER: YES COLOR FLOW: YES TDS: YES PORTABLE: YES DEFINITY: BUBBLE STUDY: DIAGNOSIS: CHEST PAIN, RULE OUT ACUTE CORONARY SYNDROME CARDIAC HISTORY: CATHERIZATION: NO SURGERY: NO PROSTHETIC VALVE: NO PACEMAKER: NO MEASUREMENTS (cm) DIASTOLIC (NORMALS) SYSTOLIC (NORMALS) IVSd 1.2 (0.6-1.2) LA Diam 3.0 (1.9-4.0) LVEF 66% LVIDd 3.3 (3.5-5.7) LVIDs 2.2 (2.0-3.5) %FS 35% LVPWd 1.2 (0.6-1.2) Ao Diam 2.6 (2.0-3.7) 2 DIMENSIONAL ASSESSMENT: RIGHT ATRIUM: NORMAL LEFT ATRIUM: NORMAL RIGHT VENTRICLE: NORMAL LEFT VENTRICLE: NORMAL TRICUSPID VALVE: MILD TRICUSPID REGURGITATION MITRAL VALVE: MILD MITRAL REGURGITATION PULMONIC VALVE: NORMAL AORTIC VALVE: NORMAL PERICARDIAL EFFUSION: NONE AORTIC ROOT: NORMAL LEFT VENTRICULAR WALL MOTION: NORMAL DOPPLER/COLOR FLOW: MILD TRICUSPID REGURGITATION, MILD MITRAL REGURGITATION COMMENTS: 1. NORMAL LEFT VENTRICULAR EJECTION FRACTION 60-65 % 2. NORMAL WALL MOTION 3. MILD TRICUSPID REGURGITATION 4. MILD MITRAL REGURGITATION TECHNOLOGIST: MARIAN GAMBLE
[2022-06-05 14:50] VITALS: BP 119/50; O2SAT 98
--- NOTE | 2022-06-05 15:23 | CON ---
Date of Consultation: 06/05/2022 Reason For Consultation: Chest pain, elevated troponin. History Of Present Illness: A 56-year-old female, came into the hospital after she had an exertional episode of chest discomfort with diaphoresis, felt very weak and had shortness of breath, lasted for about 30 to 60 minutes. Since she got into the hospital, she has been feeling well. Not known to h vinnye any history of cardiac disease. Past Medical History: Hypertension. Medications: Refer to reconciliation sheet for detailed list. Allergies: NO KNOWN DRUG ALLERGIES. Family History: No premature coronary artery disease or cancer. Social History: She does not smoke or drink. Does not use any drugs. Review of Systems: All systems reviewed and they were negative except what mentioned in HPI. Physical Examination: Vital Signs: Show temperature is 98.6, pulse 79, breathing at 14, blood pressure 123/66, saturating 99% on room air. General: Pleasant, middle-aged female, in no apparent distress. Head and Neck: Pupils are equal, reactive to light. Intact eye movements. No JVD. No cervical lym phadenopathy. Neck is supple. Thyroid is not enlarged. Lungs: Clear to auscultation bilaterally. No rhonchi, wheezing, or crackles. No accessory muscle u se. Heart: Regular rate and rhythm. No extra sounds. Abdomen: Soft, nontender. Bowel sounds positive. No organomegaly. No masses or hernia. No rigidi ty or rebound. Extremities: No edema, clubbing, or cyanosis. Intact pulses. Skin: No rash. Neurologic: Alert, awake, oriented x3. No acute focal deficits appreciated. Investigations: Troponin peaked at 464, down to 280. BUN 33, creatinine 1.1. Hemoglobin is 11.5. Assessment And Recommendations: 1.Chest pain with positive troponin and diaphoresis and shortness of breath. This could be acute co ronary syndrome. The patient is on heparin. Keep n.p.o., plan for coronary angiogram today. 2.Dyslipidemia. Continue statin. 3.Hypertension. Blood pressure is controlled. Continue home medications. SR/MODL Voice ID: [id number] Report ID: [id number]
--- NOTE | 2022-06-05 18:12 | OP ---
Date of Procedure: 06/05/2022 Surgeon: RACHEL VALADEZ Procedures Performed: 1.Selective coronary angiogram. 2.Left heart catheterization. Indication: Non-ST elevation myocardial infarction. Access: Right radial artery 6-Kyr[place]z closed with TR band. Complications: None. Bleeding: Less than 20 mL. Anesthesia: Total sedation time was 30 minutes, used fentanyl and Versed in incremental doses. Description Of Procedure: After risks, benefits, alternatives were explained, the patient agreed to the procedure and signed informed consent. The patient was brought into the cardiac catheterization laboratory, prepped and draped in the usual sterile fashion. Then, I accessed right radial artery us ing pediatric micropuncture kit and placed a 6-[place] Slender sheath and took 5-[place]yr[place] 4.0 cath eter into the aortic root, engaged left main and then the RCA and took standard views, and then the c atheter was pushed over the wire into the LV, measured LVEDP and pullback did not record any gradient . Then, the catheter was removed, sheath was removed and placed TR band with good hemostasis. Findings: 1.Left main; large, normal. 2.LAD; normal with normal diagonal branches. 3.Left circumflex; normal with normal OM branches. 4.RCA normal. Normal PLB and PDA. 5.Normal LVEDP at 6 mmHg. Conclusion: 1.Normal coronary arteries. 2.Normal LVEDP. SR/MODL Voice ID: [id number] Report ID: [id number]
== END 2022-06-05 15:40 | disposition home or self-care (01) | DRG 287 ==
LOC: ER 12:48 → ERHOLD 17:32 → 4TH 19:44
PROVIDERS: ADMIT Hospitalist; ATTEND Hospitalist
PROC: 4A023N7 Measurement of Cardiac Sampling and Pressure, Left Heart, Percutaneous Approach (ICD-10-PCS; principal; 2022-06-05)
PROC: B2111ZZ Fluoroscopy of Multiple Coronary Arteries using Low Osmolar Contrast (ICD-10-PCS; 2022-06-05)
DX: R07.9 Chest pain, unspecified (principal); I10 Essential (primary) hypertension; F32.A Depression, unspecified; E78.5 Hyperlipidemia, unspecified; R61 Generalized hyperhidrosis; Z79.899 Other long term (current) drug therapy; Z28.310 Unvaccinated for COVID-19; Z20.822 Contact with and (suspected) exposure to COVID-19
CPT/HCPCS: 36415; 71045; 80048; 80061; 80076; 83735; 83880; 84443; 84484; 85025; 85379; 85610; 85730; 87811; 93005; 93306; 93458; 96360; 96361; 99284; C1893; J0461; J1644; J2001; J2250; J3010; J7040; Q9966